=== PATIENT | female | born 2000 | race Caucasian/White ===

== ENCOUNTER 2023-08-07 20:42 | Observation (INO) | payer OTHER ==
[~2023-08-07] VITALS: Ht 135 cm; Wt 60.3 kg
[2023-08-07] MEDS: NACL 0.9% 1,000 ML IV ONE (22:01)
[2023-08-07] MEDS ORDERED: cefTRIAXone 1,000 MG VIAL ONE (22:03)
[2023-08-07 22:09] LABS: BASOPHILS % (AUTO) 0.2 % (0.0-2.0); EOSINOPHILS # (AUTO) 0.1 K/uL (0-0.4); EOSINOPHILS % (AUTO) 0.7 % (0.0-4.0); HEMATOCRIT 34.8 % (36-48); HEMOGLOBIN 12.2 g/dL (12.0-16.0); LYMPHOCYTES # (AUTO) 1.9 K/uL (2.5-16.5); LYMPHOCYTES % (AUTO) 25.6 % (20.5-51.1); MEAN CORPUSCULAR HEMOGLOBIN 33 pg (27-31); MEAN CORPUSCULAR HGB CONC 35 g/dL (33-37); MEAN CORPUSCULAR VOLUME 95.2 fL (80-94); MONOCYTES # (AUTO) 0.5 K/uL (0.8-1.0); MONOCYTES % (AUTO) 6.7 % (1.7-9.3); NEUTROPHILS # (AUTO) 4.9 K/uL (1.8-7.7); NEUTROPHILS % (AUTO) 66.8 % (42.2-75.2); PLATELET COUNT (AUTO) 150 K/uL (140-450); RED BLOOD CELL COUNT(AUTO) 3.66 MIL/uL (4.20-5.40); RED CELL DISTRIBUTION WIDTH 13.3 % (11.6-13.7); WHITE BLOOD COUNT (AUTO) 7.4 K/uL (4.8-10.8)
[2023-08-07 22:15] LABS: BILIRUBIN,URINE NEGATIVE (NEGATIVE); BLOOD, URINE TRACE-I (NEGATIVE); COLOR,URINE YELLOW (YELLOW); LEUKOCYTE ESTERASE ,URINE 3+ (NEGATIVE); NITRITE, URINE NEGATIVE (NEGATIVE); PH,URINE 7.5 (5.0-9.0); PROTEIN,URINE NEGATIVE (NEGATIVE); UGLUCOSE NEGATIVE (NEGATIVE); UROBILINOGEN,URINE 0.2 EU/dL (0.2 - 1)
[2023-08-07 22:17] LABS: APPEARANCE,URINE SLIGHTLY CLOUDY (CLEAR)
[2023-08-07 22:21] LABS: BACTERIA,URINE 2+ /HPF (None Seen); MUCUS,URINE None Seen /LPF (None Seen); RBC,URINE 0-5 /HPF (0-5); SQUAMOUS EPITHELIAL CELL,UR 4-10 (MOD) /LPF (0-3 (FEW))
[2023-08-07 22:47] LABS: ALBUMIN 2.6 g/dL (3.4-5.0); ANION GAP 13.3 (8-16); CALCIUM 8.9 mg/dL (8.5-10.1); CREATININE 0.3 mg/dL (0.6-1.3); POTASSIUM 4.3 mmol/L (3.5-5.1); TOTAL BILIRUBIN 0.4 mg/dL (0.0-1.0); TOTAL PROTEIN, SERUM 6.8 g/dL (6.4-8.2)
[2023-08-07] MEDS: NACL 0.9% 500 ML IV SCH (23:05)
[2023-08-08] MEDS ORDERED: PREN-543 PO
[2023-08-08] MEDS ORDERED: FERR325E14 PO
[2023-08-08] MEDS ORDERED: MEDS-TO-BEDS MC SCH (21:00)
== END 2023-08-08 09:45 | disposition home or self-care (01) ==
LOC: MLD 20:42
PROVIDERS: ADMIT Obstetrics & Gynecology; ATTEND Obstetrics & Gynecology
DX: O26.893 Other specified pregnancy related conditions, third trimester (principal); R10.30 Lower abdominal pain, unspecified; Z3A.37 37 weeks gestation of pregnancy
CPT/HCPCS: 36415; 76805; 80053; 81001; 85025; 87086; 96361; 96365; G0378; J0696; J7030; J7060; Q0092

== ENCOUNTER 2023-08-26 02:35 | Inpatient (IN) | payer OTHER ==
[~2023-08-26] VITALS: Ht 165.1 cm; Wt 52.2 kg
[~2023-08-26 02:35] MED LIST: FERR325E14 PO; PREN-543 PO
[2023-08-26 03:00] VITALS: BP 104/66; PULSE 86; RESP 20; TEMP 98
[2023-08-26] MEDS ORDERED: LACTATED RINGERS 500 ML IV ONE (03:05)
[2023-08-26] MEDS ORDERED: METHYLERGONOVINE 0.2 MG/ML AMP IM PRN ×2 (03:05→18:10)
[2023-08-26] MEDS ORDERED: OXYTOCIN/0.9 % SODIUM CHLORIDE 500 ML IV SCH (03:15)
[2023-08-26 03:27] LABS: BASOPHILS % (AUTO) 0.3 % (0.0-2.0); EOSINOPHILS % (AUTO) 0.2 % (0.0-4.0); HEMATOCRIT 34.6 % (36-48); LYMPHOCYTES # (AUTO) 2.1 K/uL (2.5-16.5); LYMPHOCYTES % (AUTO) 17.7 % (20.5-51.1); MEAN CORPUSCULAR HEMOGLOBIN 33 pg (27-31); MEAN CORPUSCULAR HGB CONC 35 g/dL (33-37); MEAN CORPUSCULAR VOLUME 94.4 fL (80-94); MONOCYTES # (AUTO) 0.4 K/uL (0.8-1.0); MONOCYTES % (AUTO) 3.7 % (1.7-9.3); NEUTROPHILS % (AUTO) 78.1 % (42.2-75.2); PLATELET COUNT (AUTO) 145 K/uL (140-450); RED BLOOD CELL COUNT(AUTO) 3.66 MIL/uL (4.20-5.40); RED CELL DISTRIBUTION WIDTH 13.3 % (11.6-13.7); WHITE BLOOD COUNT (AUTO) 11.6 K/uL (4.8-10.8)
[2023-08-26 03:52] LABS: ALBUMIN 2.7 g/dL (3.4-5.0); ANION GAP 13.5 (8-16); CARBON DIOXIDE 25.3 mmol/L (21-32); CREATININE 0.6 mg/dL (0.6-1.3); POTASSIUM 3.8 mmol/L (3.5-5.1); TOTAL BILIRUBIN 0.5 mg/dL (0.0-1.0)
[2023-08-26] MEDS: LACTATED RINGERS 1,000 ML IV SCH (03:55)
[2023-08-26] MEDS: MORPHINE SULFATE 10 MG/ML VIAL IVP PRN (04:12)
[2023-08-26] MEDS: ONDANSETRON 4 MG/2 ML VIAL IVP PRN (04:13)
[2023-08-26] MEDS ORDERED: magnesium (05:08)
[2023-08-26 08:44] VITALS: BP 99/71; PULSE 94; RESP 18
[2023-08-26] MEDS ORDERED: LIDOCAINE 1% 500 MG/50 ML VIAL INJ ONE (09:00)
[2023-08-26 09:18] LABS: APPEARANCE,URINE CLEAR (CLEAR); BILIRUBIN,URINE NEGATIVE (NEGATIVE); BLOOD, URINE NEGATIVE (NEGATIVE); COLOR,URINE YELLOW (YELLOW); LEUKOCYTE ESTERASE ,URINE NEGATIVE (NEGATIVE); NITRITE, URINE NEGATIVE (NEGATIVE); PROTEIN,URINE TRACE (NEGATIVE); UGLUCOSE NEGATIVE (NEGATIVE); UROBILINOGEN,URINE 0.2 EU/dL (0.2 - 1)
[2023-08-26] MEDS ORDERED: ROPIVACAINE 0.2%/NS PREMIX 200 ML EPI ONE ×2 (11:28)
[2023-08-26] MEDS ORDERED: LIDOCAINE 1% 500 MG/50 ML VIAL ONE (16:34)
[2023-08-26] MEDS ORDERED: MEASLES, MUMPS, AND RUBELLA 1 VIAL SQVAC ONE (18:10)
[2023-08-26] MEDS ORDERED: OXYTOCIN 10 UNITS/ML VIAL IM PRN (18:10)
[2023-08-26] MEDS ORDERED: BENZOCAINE/MENTHOL 20%-0.5% 60 GM CAN TP PRN (18:10)
[2023-08-26] MEDS ORDERED: METHYLERGONOVINE 0.2 MG TAB PO PRN (18:10)
[2023-08-27] MEDS: IBUPROFEN 800 MG TAB PO PRN (05:37)
[2023-08-27 05:41] LABS: HEMATOCRIT 34.2 % (36-48); HEMOGLOBIN 11.7 g/dL (12.0-16.0)
[2023-08-27] MEDS ORDERED: IBUP-2213 PO (10:51)
[2023-08-27] MEDS ORDERED: PREN-564 PO (10:51)
== END 2023-08-28 21:27 | disposition home or self-care (01) | DRG 560 ==
LOC: MLD 02:35 → OBSVTOIN 03:00 → MFCC 08:15
PROVIDERS: ADMIT Obstetrics & Gynecology; ATTEND Obstetrics & Gynecology
PROC: 10E0XZZ Delivery of Products of Conception, External Approach (ICD-10-PCS; principal; 2023-08-27)
PROC: 0HQ9XZZ Repair Perineum Skin, External Approach (ICD-10-PCS; 2023-08-27)
PROC: 3E0R3BZ Introduction of Anesthetic Agent into Spinal Canal, Percutaneous Approach (ICD-10-PCS; 2023-08-27)
PROC: 00HU33Z Insertion of Infusion Device into Spinal Canal, Percutaneous Approach (ICD-10-PCS; 2023-08-27)
DX: O48.0 Post-term pregnancy (principal); Z37.0 Single live birth; O70.0 First degree perineal laceration during delivery; O77.0 Labor and delivery complicated by meconium in amniotic fluid; Z3A.40 40 weeks gestation of pregnancy
CPT/HCPCS: 36415; 59409; 80053; 81003; 85018; 85025; 86592; 86886; 86900; 86901; 90715; J2001; J2270; J2405; J2590; J2795

== ENCOUNTER 2023-11-21 21:30 | Emergency (ER) | payer OTHER ==
[~2023-11-21] VITALS: Ht 157.5 cm; Wt 50.4 kg
[~2023-11-21 21:30] MED LIST changes: -FERR325E14 PO; +IBUP-2213 PO; +PREN-564 PO
[2023-11-21 21:39] VITALS: BP 114/63; PULSE 107; RESP 14; TEMP 101; O2SAT 99
[2023-11-21 22:10] LABS: FLU A ANTIGEN negative (NEGATIVE); FLU B ANTIGEN negative (NEGATIVE)
[2023-11-21] MEDS: ONDANSETRON 4 MG ODT PO ONE (22:39)
[2023-11-21] MEDS: ACETAMINOPHEN EXTRA STRENGTH 500 MG TAB PO ONE (22:40)
[2023-11-21] MEDS ORDERED: NAPR-337 PO (22:46)
[2023-11-21] MEDS ORDERED: ONDA-188 PO (22:46)
[2023-11-21 23:00] VITALS: BP 114/63; PULSE 107; RESP 14; TEMP 101; O2SAT 99
== END 2023-11-21 22:59 | disposition home or self-care (01) ==
LOC: MED 21:30
DX: U07.1 COVID-19 (principal); Z79.1 Long term (current) use of non-steroidal anti-inflammatories (NSAID); Z79.899 Other long term (current) drug therapy
CPT/HCPCS: 87426; 87804; 99283; Q0162